=== PATIENT | male | born 1990 | race Two or more races ===

== ENCOUNTER 2020-01-09 10:59 | Emergency (ER) | payer OTHER ==
[~2020-01-09] VITALS: Ht 162.6 cm; Wt 71.8 kg
[2020-01-09 11:07] VITALS: BP 140/81
[2020-01-09] MEDS ORDERED: LIDOCAINE-MPF 1%, 5ML INFIL ONE (11:30)
[2020-01-09] MEDS ORDERED: LIDOCAINE-MPF 1%, 5ML ONE (11:33)
[2020-01-09] MEDS ORDERED: CEPHALEXIN 500 MG CAPSULE PO ONE (12:30)
[2020-01-09] MEDS ORDERED: NEOSPORIN OINT. PKT 1 PACKET ONE (12:38)
[2020-01-09] MEDS ORDERED: CEPHALEXIN 500 MG CAPSULE ONE ×2 (12:38→12:41)
== END 2020-01-09 12:53 | disposition home or self-care (01) ==
LOC: ED 11:34
DX: S61.042A Puncture wound with foreign body of left thumb without damage to nail, initial encounter (principal); X58.XXXA Exposure to other specified factors, initial encounter; Y93.89 Activity, other specified; Y92.69 Other specified industrial and construction area as the place of occurrence of the external cause; Y99.0 Civilian activity done for income or pay
CPT/HCPCS: 64450; 99284